=== PATIENT | female | born 1975 | race Asian ===

== ENCOUNTER 2016-06-25 18:03 | Emergency (ER) | payer MEDICARE, MEDICAID ==
[~2016-06-25] VITALS: Ht 160 cm; Wt 84.1 kg
[~2016-06-25 18:03] MED LIST: COUGH MEDS
[2016-06-25 18:21] VITALS: BP 167/89
== END 2016-06-25 21:51 | disposition left against medical advice (07) ==
LOC: EMS 18:05
DX: R05 Cough (principal); R06.02 Shortness of breath; Z53.21 Procedure and treatment not carried out due to patient leaving prior to being seen by health care provider